=== PATIENT | female | born 2000 | race Caucasian/White ===

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

== ENCOUNTER 2023-10-10 18:55 | Emergency (ER) | payer MEDICAID ==
[~2023-10-10] VITALS: Ht 152.4 cm; Wt 45.4 kg
[2023-10-10 19:28] VITALS: BP_SYST 126; PULSE 70; RESP 16; TEMP 97.8; O2SAT 98
[2023-10-10 20:34] LABS: INFLUENZA TYPE A Negative (NEGATIVE); INFLUENZA TYPE B NEGATIVE (NEGATIVE)
[2023-10-10] MEDS ORDERED: PHEDM120 PO (20:37)
[2023-10-10] MEDS ORDERED: IBUP-1969 PO (20:37)
[2023-10-10] MEDS ORDERED: AMOX-423 PO (20:37)
[2023-10-10 20:40] VITALS: BP_SYST 126; PULSE 70; RESP 16; TEMP 97.8; O2SAT 98
[2023-10-10 20:50] LABS: STREPTOCOCCUS A SCREEN (RAPID) NEGATIVE (NEGATIVE)
== END 2023-10-10 20:52 | disposition home or self-care (01) ==
LOC: SED 18:55
DX: J02.9 Acute pharyngitis, unspecified (principal); Z20.822 Contact with and (suspected) exposure to COVID-19; Z79.899 Other long term (current) drug therapy
CPT/HCPCS: 36415; 86403; 87081; 99283